=== PATIENT | female | born 1935 | race Caucasian/White ===

== ENCOUNTER → 2017-01-30 | Outpatient (CLI) | payer MEDICARE | LOC: MAMMO 13:24 | DX: Z13.820 Encounter for screening for osteoporosis (principal); M85.89 Other specified disorders of bone density and structure, multiple sites ==

== ENCOUNTER → 2019-02-17 | Outpatient (CLI) | payer MEDICARE | LOC: RAD 10:49 → MAMMO 11:30 → RAD 11:30 | DX: M85.851 Other specified disorders of bone density and structure, right thigh (principal); M85.852 Other specified disorders of bone density and structure, left thigh ==

== ENCOUNTER → 2020-02-18 | Outpatient (CLI) | payer MEDICARE | LOC: RAD 15:45 → VAS 15:45 | DX: R60.0 Localized edema (principal); R00.1 Bradycardia, unspecified ==

== ENCOUNTER 2020-03-24 09:14 | Inpatient (IN) | payer MEDICARE ==
[~2020-03-24 09:14] MED LIST: ACETAMINOPHEN500 M5 PO; ASPIRIN 81M81 MG/TA2 PO; COLACE100 M1 PO; DITROPAN XL 5MG5 M1 PO; LISINOPRIL20 MG PO; MELOXICAM15 MG PO; METFORMIN ER500 MG PO; OMEPRAZOLE40 MG PO; SIMVASTATIN20 M1 PO; VITAMIN D3100 MCG PO
[2020-03-24 10:39] VITALS: BP 134/63
[2020-03-24 11:12] LABS: EOS # 0.1 (0.04-0.40); EOS % 1.6 % (1.0-5.0); HEMATOCRIT 40.3 % (37.0-47.0); HEMOGLOBIN 13.1 g/dL (12.5-16.0); LYMPH# 1.3 (1.50-4.00); MEAN CELL VOLUME 95 fl (78-100); MEAN CORPUSCULAR HEMOGLOBIN 31 pg (27-31); MEAN CORPUSCULAR HGB CONC 33 g/dL (33-37); MONO # 0.5 (0.20-0.80); NEU # 3.2 (1.40-6.50); PLATELET COUNT 170 K/mm3 (130-400); RED BLOOD COUNT 4.26 M/mm3 (4.10-5.30); RED CELL DISTRIBUTION WIDTH 14.4 % (11.5-14.5); WHITE BLOOD COUNT 5.1 K/mm3 (4.8-10.8)
[2020-03-24 11:15] LABS: POTASSIUM 4.1 mmol/L (3.5-5.1)
[2020-03-24 11:16] LABS: CALCIUM 8.4 mg/dL (8.3-10.5)
[2020-03-24] MEDS ORDERED: MELOXICAM15 MG PO (14:46)
[2020-03-24 17:16] VITALS: BP 108/54
[2020-03-24 17:40] VITALS: BP 108/54
[2020-03-25 05:47] VITALS: BP 137/63
[2020-03-25 17:16] VITALS: BP 112/61
[2020-03-26 05:51] VITALS: BP 159/74
[2020-03-26 17:58] VITALS: BP 131/72
[2020-03-27 05:21] VITALS: BP 160/68
[2020-03-27 17:20] VITALS: BP 107/66
[2020-03-28 06:31] VITALS: BP 149/75
[2020-03-28 17:56] VITALS: BP 150/64
[2020-03-29 05:05] VITALS: BP 152/66
[2020-03-29 16:40] VITALS: BP 121/63
[2020-03-30 05:18] VITALS: BP 166/54
[2020-03-30 17:00] VITALS: BP 118/62
[2020-03-31 06:00] VITALS: BP 170/73
[2020-03-31 18:11] VITALS: BP 151/65
[2020-04-01 05:53] VITALS: BP 163/71
[2020-04-01 17:01] VITALS: BP 113/62
[2020-04-02 05:19] VITALS: BP 128/65
[2020-04-02 17:09] VITALS: BP 122/66
[2020-04-03 05:16] VITALS: BP 135/66
[2020-04-03 17:15] VITALS: BP 129/74
[2020-04-04 05:45] VITALS: BP 154/56
[2020-04-04 17:06] VITALS: BP 126/64
[2020-04-05 05:40] VITALS: BP 145/71
[2020-04-05 16:12] VITALS: BP 124/62
[2020-04-06 05:44] VITALS: BP 168/68
[2020-04-06 18:15] VITALS: BP 110/49
[2020-04-07 05:57] VITALS: BP 150/69
[2020-04-07 14:43] VITALS: BP 135/50
[2020-04-08 06:17] VITALS: BP 132/66
[2020-04-08 17:20] VITALS: BP 114/52
[2020-04-09 05:40] VITALS: BP 162/73
[2020-04-09 17:50] VITALS: BP 130/55
[2020-04-10 05:39] VITALS: BP 185/70
[2020-04-10 18:16] VITALS: BP 128/57
[2020-04-11 05:19] VITALS: BP 166/59
[2020-04-11] MEDS ORDERED: CLOPIDOGREL PO (09:01)
[2020-04-11] MEDS ORDERED: ATORVASTATIN CA20 MG PO (09:01)
[2020-04-11] MEDS ORDERED: LISINOPRIL20 MG PO (09:02)
[2020-04-11] MEDS ORDERED: ASPIRIN 81M81 MG/TA2 PO (09:02)
[2020-04-11] MEDS ORDERED: ACETAMINOPHEN500 M5 PO (09:03)
[2020-04-11] MEDS ORDERED: METFORMIN ER500 MG PO (09:03)
[2020-04-11] MEDS ORDERED: COLACE100 M1 PO (09:03)
[2020-04-11] MEDS ORDERED: OMEPRAZOLE40 MG PO (09:03)
[2020-04-11] MEDS ORDERED: DITROPAN XL 5MG5 M1 PO (09:04)
[2020-04-11] MEDS ORDERED: VITAMIN D3100 MCG PO (09:04)
[2020-04-11 17:36] VITALS: BP 145/61
[2020-04-12 05:22] VITALS: BP 159/62
[2020-04-12 17:13] VITALS: BP 103/44
[2020-04-13 05:50] VITALS: BP 164/51
[2020-04-13 18:05] VITALS: BP 192/67
[2020-04-14 05:36] VITALS: BP 168/78
[2020-04-14 17:13] VITALS: BP 142/58
[2020-04-15 05:46] VITALS: BP 163/77
[2020-04-15 16:56] VITALS: BP 114/52
[2020-04-16 05:48] VITALS: BP 161/62
[2020-04-16 17:58] VITALS: BP 128/62
[2020-04-17 05:41] VITALS: BP 127/93
[2020-04-17 17:26] VITALS: BP 144/70
[2020-04-18 06:00] VITALS: BP 145/66
[2020-04-18 17:30] VITALS: BP 106/50
[2020-04-19 05:22] VITALS: BP 130/62
[2020-04-19 17:27] VITALS: BP 103/58
[2020-04-20 05:40] VITALS: BP 140/54
== END 2020-04-20 11:00 | DRG 57 ==
LOC: MED/SURG 09:14
PROVIDERS: ADMIT Nurse Practitioner Primary Care
DX: I69.920 Aphasia following unspecified cerebrovascular disease (principal); I10 Essential (primary) hypertension; E11.9 Type 2 diabetes mellitus without complications; K21.9 Gastro-esophageal reflux disease without esophagitis; F03.90 Unspecified dementia, unspecified severity, without behavioral disturbance, psychotic disturbance, mood disturbance, and anxiety; M19.90 Unspecified osteoarthritis, unspecified site; E78.5 Hyperlipidemia, unspecified; Z66 Do not resuscitate; Z20.828 Contact with and (suspected) exposure to other viral communicable diseases; Z90.710 Acquired absence of both cervix and uterus; Z79.84 Long term (current) use of oral hypoglycemic drugs; Z79.82 Long term (current) use of aspirin
CPT/HCPCS: J1650

== ENCOUNTER 2020-06-26 05:14 | Emergency (ER) | payer MEDICARE ==
[~2020-06-26 05:14] MED LIST changes: +ATORVASTATIN CA20 MG PO; +CLOPIDOGREL PO
[2020-06-26 05:25] VITALS: BP 154/66
[2020-06-26] MEDS ORDERED: XANAX0.25 M1 PO (05:46)
[2020-06-26] MEDS ORDERED: TRAMADOL 50 MG TAB PO (07:04)
== END 2020-06-26 07:32 | disposition home or self-care (01) ==
LOC: ED 05:14
DX: M25.511 Pain in right shoulder (principal); R07.89 Other chest pain; I10 Essential (primary) hypertension; E11.9 Type 2 diabetes mellitus without complications; Z90.49 Acquired absence of other specified parts of digestive tract; Z86.73 Personal history of transient ischemic attack (TIA), and cerebral infarction without residual deficits; Z79.82 Long term (current) use of aspirin; Z79.02 Long term (current) use of antithrombotics/antiplatelets; Z79.84 Long term (current) use of oral hypoglycemic drugs; W19.XXXA Unspecified fall, initial encounter; Y93.01 Activity, walking, marching and hiking; Y92.121 Bathroom in nursing home as the place of occurrence of the external cause

== ENCOUNTER 2020-06-30 08:14 | Emergency (ER) | payer MEDICARE ==
[~2020-06-30] VITALS: Wt 59.1 kg
[~2020-06-30 08:14] MED LIST changes: +TRAMADOL 50 MG TAB PO; +XANAX0.25 M1 PO
[2020-06-30 12:08] VITALS: BP 155/64
== END 2020-06-30 11:55 | disposition home or self-care (01) ==
LOC: ED 08:14
DX: S09.90XA Unspecified injury of head, initial encounter (principal); S12.100A Unspecified displaced fracture of second cervical vertebra, initial encounter for closed fracture; I10 Essential (primary) hypertension; Z86.73 Personal history of transient ischemic attack (TIA), and cerebral infarction without residual deficits; Z20.828 Contact with and (suspected) exposure to other viral communicable diseases; Z79.02 Long term (current) use of antithrombotics/antiplatelets; Z79.82 Long term (current) use of aspirin; Z79.84 Long term (current) use of oral hypoglycemic drugs; W01.198A Fall on same level from slipping, tripping and stumbling with subsequent striking against other object, initial encounter; Y92.009 Unspecified place in unspecified non-institutional (private) residence as the place of occurrence of the external cause

== ENCOUNTER 2020-08-24 11:40 | Emergency (ER) | payer MEDICARE, MEDICAID ==
[2020-08-24 12:12] LABS: HEMATOCRIT 42.2 % (37.0-47.0); MEAN CELL VOLUME 97 fl (78-100); MEAN CORPUSCULAR HEMOGLOBIN 32 pg (27-31); MEAN CORPUSCULAR HGB CONC 33 g/dL (33-37); MEAN PLATELET VOLUME 10.5 fl (7.4-10.4); PLATELET COUNT 218 K/mm3 (130-400); RED BLOOD COUNT 4.37 M/mm3 (4.10-5.30); RED CELL DISTRIBUTION WIDTH 15.8 % (11.5-14.5); WHITE BLOOD COUNT 8.8 K/mm3 (4.8-10.8)
[2020-08-24 12:22] LABS: ALBUMIN 3.7 g/dL (3.4-4.8)
[2020-08-24 12:23] LABS: POTASSIUM 3.2 mmol/L (3.5-5.1)
[2020-08-24 12:24] LABS: CALCIUM 8.4 mg/dL (8.3-10.5)
[2020-08-24 12:27] LABS: TOTAL BILIRUBIN 1.3 mg/dL (0.2-1.2)
[2020-08-24 12:32] LABS: PROTHROMBIN TIME 10.2 SECONDS (9.0-12.0)
[2020-08-24 12:37] LABS: TROPONIN-I 0.19 ng/mL (<0.030)
[2020-08-24 12:41] LABS: LYMPHOCYTE 12 % (20-51); MONOCYTE 13 % (3-10); NEUTROPHILS 75 % (42-75)
[2020-08-24 12:42] LABS: ACANTHROCYTES 1+; OVALOCYTES 1+
[2020-08-24 15:20] VITALS: BP 152/65
[2020-08-24 15:37] LABS: URINE APPEARANCE CLEAR; URINE BILIRUBIN NEGATIVE (NEGATIVE); URINE BLOOD TRACE (NEGATIVE); URINE COLOR YELLOW; URINE GLUCOSE NEGATIVE (NEGATIVE); URINE KETONE NEGATIVE (NEGATIVE); URINE LEUKOCYTE ESTERASE NEGATIVE (NEGATIVE); URINE MUCUS PRESENT (NOT PRESENT); URINE NITRATE NEGATIVE (NEGATIVE); URINE PROTEIN(semi-quant) TRACE mg/dL (NEGATIVE); URINE UROBILINOGEN NORMAL (NORMAL)
== END 2020-08-24 15:20 | disposition other institution (70) ==
LOC: ED 11:40
PROVIDERS: Physician Assistant
DX: S12.100A Unspecified displaced fracture of second cervical vertebra, initial encounter for closed fracture (principal); F03.90 Unspecified dementia, unspecified severity, without behavioral disturbance, psychotic disturbance, mood disturbance, and anxiety; R74.8 Abnormal levels of other serum enzymes; R53.1 Weakness; I10 Essential (primary) hypertension; E11.9 Type 2 diabetes mellitus without complications; F41.9 Anxiety disorder, unspecified; Z86.73 Personal history of transient ischemic attack (TIA), and cerebral infarction without residual deficits; Z79.02 Long term (current) use of antithrombotics/antiplatelets; Z79.82 Long term (current) use of aspirin; Z79.84 Long term (current) use of oral hypoglycemic drugs; W19.XXXA Unspecified fall, initial encounter

== ENCOUNTER → 2020-09-20 | Outpatient (CLI) | payer MEDICARE, MEDICAID ==
[2020-08-26 14:00] VITALS: BP 146/59
[2020-09-20 11:46] LABS: EOS # 0.1 (0.04-0.40); EOS % 1.1 % (1.0-5.0); HEMATOCRIT 41.3 % (37.0-47.0); HEMOGLOBIN 13.5 g/dL (12.5-16.0); LYMPH# 1.1 (1.50-4.00); MEAN CELL VOLUME 100 fl (78-100); MEAN CORPUSCULAR HEMOGLOBIN 33 pg (27-31); MEAN CORPUSCULAR HGB CONC 33 g/dL (33-37); MEAN PLATELET VOLUME 11.1 fl (7.4-10.4); MONO # 0.5 (0.20-0.80); NEU # 3.7 (1.40-6.50); PLATELET COUNT 219 K/mm3 (130-400); RED BLOOD COUNT 4.13 M/mm3 (4.10-5.30); RED CELL DISTRIBUTION WIDTH 15.6 % (11.5-14.5); WHITE BLOOD COUNT 5.3 K/mm3 (4.8-10.8)
[2020-09-20 11:56] LABS: POTASSIUM 4.1 mmol/L (3.5-5.1)
[2020-09-20 11:57] LABS: CALCIUM 8.6 mg/dL (8.3-10.5)
== END ==
LOC: LAB 10:59
PROVIDERS: Family Medicine
DX: R60.0 Localized edema (principal)

== ENCOUNTER → 2020-10-27 | Outpatient (CLI) | payer MEDICARE, MEDICAID ==
[2020-08-26 14:00] VITALS: BP 146/59
[2020-10-27 16:05] LABS: URINE APPEARANCE CLEAR; URINE BILIRUBIN NEGATIVE (NEGATIVE); URINE BLOOD TRACE (NEGATIVE); URINE COLOR YELLOW; URINE GLUCOSE NEGATIVE (NEGATIVE); URINE KETONE NEGATIVE (NEGATIVE); URINE LEUKOCYTE ESTERASE TRACE (NEGATIVE); URINE NITRATE NEGATIVE (NEGATIVE); URINE PROTEIN(semi-quant) NEGATIVE (NEGATIVE); URINE UROBILINOGEN NORMAL (NORMAL); URINE WBC 0-1 /hpf (0-3)
== END ==
LOC: LAB 15:28
PROVIDERS: Family Medicine
DX: N39.0 Urinary tract infection, site not specified (principal)

== ENCOUNTER → 2020-10-29 | Outpatient (CLI) | payer MEDICARE, MEDICAID ==
[2020-08-26 14:00] VITALS: BP 146/59
[2020-10-29 10:41] LABS: PH-URINE 6.5 (5.0 - 8.0); URINE APPEARANCE HAZY; URINE BILIRUBIN NEGATIVE (NEGATIVE); URINE BLOOD TRACE (NEGATIVE); URINE COLOR YELLOW; URINE GLUCOSE NEGATIVE (NEGATIVE); URINE KETONE NEGATIVE (NEGATIVE); URINE LEUKOCYTE ESTERASE TRACE (NEGATIVE); URINE MUCUS PRESENT (NOT PRESENT); URINE NITRATE NEGATIVE (NEGATIVE); URINE PROTEIN(semi-quant) TRACE mg/dL (NEGATIVE); URINE UROBILINOGEN NORMAL (NORMAL)
== END ==
LOC: LAB 09:56
PROVIDERS: Family Medicine
DX: R82.90 Unspecified abnormal findings in urine (principal); R41.0 Disorientation, unspecified